=== PATIENT | male | born 1985 | race Caucasian/White ===

== ENCOUNTER 2016-07-01 11:52 | Emergency (ER) | payer SELFPAY ==
[2016-07-01] MEDS ORDERED: Ondansetron ODT 4 MG TAB ONE (12:08)
[2016-07-01] MEDS ORDERED: Ketorolac Tromethamine 60 MG/2 ML VIAL ONE (12:20)
== END 2016-07-01 13:00 | disposition home or self-care (01) ==
LOC: BURERS 11:52
DX: K52.9 Noninfective gastroenteritis and colitis, unspecified (principal); I10 Essential (primary) hypertension; F31.9 Bipolar disorder, unspecified; F17.210 Nicotine dependence, cigarettes, uncomplicated; Z79.899 Other long term (current) drug therapy
CPT/HCPCS: 96372; J1885; Q0162

== ENCOUNTER 2016-09-08 10:35 | Emergency (ER) | payer SELFPAY ==
[2016-09-08] MEDS ORDERED: Bacitracin Zinc 1 Packet ONE (10:55)
== END 2016-09-08 11:07 ==
LOC: BURERS 10:35
DX: S01.01XA Laceration without foreign body of scalp, initial encounter (principal); S01.81XA Laceration without foreign body of other part of head, initial encounter; I10 Essential (primary) hypertension; F31.9 Bipolar disorder, unspecified; F17.210 Nicotine dependence, cigarettes, uncomplicated; Z79.899 Other long term (current) drug therapy; X58.XXXA Exposure to other specified factors, initial encounter
CPT/HCPCS: 12002

== ENCOUNTER 2024-04-04 12:08 | Emergency (ER) | payer MEDICARE, MEDICAID | END 2024-04-04 12:28 | disposition home or self-care (01) | LOC: BURERS 12:08 | DX: R20.2 Paresthesia of skin (principal); F41.9 Anxiety disorder, unspecified; I10 Essential (primary) hypertension; F17.210 Nicotine dependence, cigarettes, uncomplicated; F17.290 Nicotine dependence, other tobacco product, uncomplicated; Z55.6 Problems related to health literacy | CPT/HCPCS: 99283 ==